=== PATIENT | female | born 1995 | race Hispanic/Latino ===

== ENCOUNTER 2021-06-29 11:05 | Emergency (ER) | payer OTHER ==
[2021-06-29] MEDS ORDERED: NA CHLORIDE 0.9% 1,000 ML ONE (12:26)
[2021-06-29 12:45] LABS: Absolute Lymphocytes (CBC) 2.7 K/uL (0.7-4.9); Basophils % 0.6 % (0-1.3); Hematocrit 38.2 % (36.0-45.0); Lymphocytes % 19.8 % (15.3-44.8); MPV 7.8 fL (7.6-11.3); RBC Red Blood Cell Count 4.51 M/uL (3.86-4.86)
--- NOTE | 2021-06-29 12:54 | RAD REPORT ---
EXAM DESCRIPTION: US - Matter Jennie Tm 1 - 06/29/2021 12:33 pm CLINICAL HISTORY: ABD CRAMPING, Early . COMPARISON: No comparisons FINDINGS: A single gestational sac is seen within the uterus. The shape of the sac is within normal limits for gestational age. Within the sac is a single pole with crown-rump length of 22 mm, co rrelating to estimated gestational age of 8 weeks 6 days. Estimated date of delivery is 02/02/2022. Heart rate is 179 BPM. Small 12 mm subchorionic bleed along the inferior margin of the sac. The placenta is not yet developed / visualized due to early gestational age. The maternal adnexa and ovaries are within normal limits. Normal Doppler blood flow was demonstrated to both ovaries. IMPRESSION: Single live early intrauterine gestation with estimated gestational age of 8 weeks and 6 days, MICHELE 02/02/2022. Small 12 mm subchorionic bleed along the inferior margin the sac.
[2021-06-29 14:55] LABS: BUN Blood Urea Nitrogen 6 mg/dL (7-18); Bicarbonate 21 mmol/L (21-32); Glucose Level 76 mg/dL (74-106); Potassium 3.8 mmol/L (3.5-5.1); Sodium Level 139 mmol/L (136-145)
[2021-06-29 14:57] LABS: HCG, Quantitative 59446 mIU/mL (1-3)
--- NOTE | 2021-06-29 14:59 | ER ---
Nurse's Notes [facility] Name: Chanel Sylvester Age: 25 yrs Sex: Female : 1995 Arrival Date: 06/29/2021 Time: 11:09 Bed 24 Private MD: Diagnosis: Threatened Presentation: 06/29 11:28 Chief complaint: Patient states: she began having vaginal bleeding last night. patient ap3 states she is RH negative and this is her third . one living, another passed soon after . Coronavirus screen: Vaccine status: Patient reports being unvaccinated. Client denies travel out of the [place] in the last 14 days. Ebola Screen: No symptoms or risks identified at this time. Initial Sepsis Screen: Does the patient meet any 2 criteria? No. Patient's initial sepsis screen is negative. Risk Assessment: Do you want to hurt yourself or someone else? Patient reports no desire to harm self or others. Onset of symptoms was June 28, 2021. 11:28 Method Of Arrival: Ambulatory ap3 11:28 Acuity: RAMILA 4 ap3 11:35 Acuity: RAMILA 3 iw Triage Assessment: 11:30 General: Appears in no apparent distress. comfortable, Behavior is calm, cooperative, ap3 appropriate for age. Pain: Denies pain. Neuro: Level of Consciousness is awake, alert, obeys commands, Oriented to person, place, time, situation, Appropriate for age Moves all extremities. Gait is steady, Speech is normal. Cardiovascular: Capillary refill < 3 seconds Patient's skin is warm and dry. Respiratory: Airway is patent Respiratory effort is even, unlabored, Respiratory pattern is regular, symmetrical. GI: No signs and/or symptoms were reported involving the gastrointestinal system. : Reports vaginal bleeding that is with clots. 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 - Social history:: Smoking status: Patient denies any tobacco usage or history of. Patient/guardian denies using alcohol, street drugs. Screenin:31 Abuse screen: Denies threats or abuse. Nutritional screening: No deficits noted. ap3 Tuberculosis screening: No symptoms or risk factors identified. Fall Risk None identified. Assessment: 11:37 Obstetrical Assessment: General assessment: awake and alert, skin warm and dry, aj2 respirations even and unlabored. General: Appears in no apparent distress. comfortable, well groomed, well developed, well nourished. Pain: Complains of pain in abdomen. Pain: Denies pain. Complains of pain in suprapubic area Pain radiates to lumbar area, left low back and right low back Pain currently is 6 out of 10 on a pain scale. Quality of pain is described as crampy, Pain began 1 day ago. Is continuous, Alleviated by nothing. Aggravated by increased activity, repositioning, Also complains of no other associated symptoms. 12:26 Reassessment: Positive HCG. aj2 13:40 Reassessment: Patient appears in no apparent distress at this time. Patient is alert, aj2 oriented x 3, equal unlabored respirations, skin warm/dry/pink. Vital Signs: 11:43 BP 121 / 66; Pulse 73; Resp 18; Temp 98.7; Pulse Ox 100% on R/A; aj2 13:40 BP 110 / 67; Pulse 76; Resp 18; Temp 98.5; Pulse Ox 100% on R/A; aj2 16:59 BP 115 / 67; Pulse 67; Resp 20; Temp 98.5; Pulse Ox 100% on R/A; aj2 ED Course: 11:09 Patient arrived in ED. as 11:30 Triage completed. ap3 11:32 Wai Flanagan is Primary Nurse. aj2 11:32 Patient has correct armband on for positive identification. Placed in gown. Bed in low ap3 position. Call light in reach. Side rails up X2. Door closed. Noise minimized. 11:37 No apparent distress. Resting quietly. aj2 11:37 No provider procedures requiring assistance completed. Patient did not have IV access aj2 during this emergency room visit. 11:43 Awais Croft MD is Attending Physician. renetta 12:18 Basic Metabolic Panel Sent. aj2 12:18 CBC with Automated Diff Sent. aj2 12:18 Urine Culture Sent. aj2 12:18 ABO/RH typing Sent. aj2 12:18 Abo/rh Typing Sent. aj2 12:18 Basic Metabolic Panel Sent. aj2 12:18 CBC with Diff Sent. aj2 12:19 Urine Culture Sent. aj2 12:19 Quantitative Hcg Sent. aj2 12:33 Matter Eval Tm 1 In Process Unspecified. EDMS 13:40 No apparent distress. Resting quietly. aj2 14:58 Daniel Rolon MD is Referral Physician. [facility] Administered Medications: 12:18 Drug: NS 0.9% 1000 ml Route: IV; Rate: 1 bolus; Site: right hand; aj2 16:58 Drug: Rho D Immune Globulin 300 mcg Route: IM; Site: left deltoid; aj2 Outcome: 14:59 Discharge ordered by . [facility] 17:01 Discharged to home ambulatory. aj2 17:01 Condition: stable 17:01 Discharge instructions given to patient, Instructed on discharge instructions, follow up and referral plans. Demonstrated understanding of instructions, follow-up care, medications. 17:01 No charge visit due to . aj2 17:04 Patient left the ED. aj2 Signatures: Dispatcher [employer] EDNC Awais Croft MD MD cha Martinez, Amelia as Williams, Irene, RN RN iw Prokisch, Amanda, RN RN ap3 Jenkins, Angelea aj2
--- NOTE | 2021-06-29 14:59 | EDPHYS ---
Physician Documentation [facility] Name: Chanel Sylvester Age: 25 yrs Sex: Female : 1995 Arrival Date: 06/29/2021 Time: 11:09 Bed 24 Private MD: ANNALISE Physician Awais Croft HPI: 06/29 14:54 This 25 yrs old Female presents to ER via Ambulatory with complaints of renetta Vaginal Bleeding, + Preg <12wks. 14:54 The patient presents to the emergency department with vaginal bleeding, that is light. renetta The estimated gestational age is 9 weeks. course: care: at a clinic. Associated signs and symptoms: The patient has no apparent associated signs or symptoms. The patient has not experienced similar symptoms in the past. 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 - Social history:: Smoking status: Patient denies any tobacco usage or history of. Patient/guardian denies using alcohol, street drugs. ROS: 14:55 Constitutional: Negative for fever, chills, and weight loss, Eyes: Negative for injury, renetta pain, redness, and discharge, ENT: Negative for injury, pain, and discharge, Neck: Negative for injury, pain, and swelling, Cardiovascular: Negative for chest pain, palpitations, and edema, Respiratory: Negative for shortness of breath, cough, wheezing, and pleuritic chest pain, Abdomen/GI: Negative for abdominal pain, nausea, vomiting, diarrhea, and constipation, Back: Negative for injury and pain, MS/Extremity: Negative for injury and deformity, Skin: Negative for injury, rash, and discoloration, Neuro: Negative for headache, weakness, numbness, tingling, and seizure, Psych: Negative for depression, anxiety, suicide ideation, homicidal ideation, and hallucinations, Allergy/Immunology: Negative for hives, rash, and allergies, Endocrine: Negative for neck swelling, polydipsia, polyuria, polyphagia, and marked weight changes, Hematologic/Lymphatic: Negative for swollen nodes, abnormal bleeding, and unusual bruising. 14:55 : Positive for vaginal bleeding. Exam: 14:55 Constitutional: This is a well developed, well nourished patient who is awake, alert, renetta and in no acute distress. Head/Face: Normocephalic, atraumatic. Eyes: Pupils equal round and reactive to light, extra-ocular motions intact. Lids and lashes normal. Conjunctiva and sclera are non-icteric and not injected. Cornea within normal limits. Periorbital areas with no swelling, redness, or edema. ENT: Nares patent. No nasal discharge, no septal abnormalities noted. Tympanic membranes are normal and external auditory canals are clear. Oropharynx with no redness, swelling, or masses, exudates, or evidence of obstruction, uvula midline. Mucous membranes moist. Neck: Trachea midline, no thyromegaly or masses palpated, and no cervical lymphadenopathy. Supple, full range of motion without nuchal rigidity, or vertebral point tenderness. No Meningismus. Chest/axilla: Normal chest wall appearance and motion. Nontender with no deformity. No lesions are appreciated. Cardiovascular: Regular rate and rhythm with a normal S1 and S2. No gallops, murmurs, or rubs. Normal PMI, no JVD. No pulse deficits. Respiratory: Lungs have equal breath sounds bilaterally, clear to auscultation and percussion. No rales, rhonchi or wheezes noted. No increased work of breathing, no retractions or nasal flaring. Abdomen/GI: Soft, non-tender, with normal bowel sounds. No distension or tympany. No guarding or rebound. No evidence of tenderness throughout. Back: No spinal tenderness. No costovertebral tenderness. Full range of motion. Skin: Warm, dry with normal turgor. Normal color with no rashes, no lesions, and no evidence of cellulitis. MS/ Extremity: Pulses equal, no cyanosis. Neurovascular intact. Full, normal range of motion. Neuro: Awake and alert, GCS 15, oriented to person, place, time, and situation. Cranial nerves II-XII grossly intact. Motor strength 5/5 in all extremities. Sensory grossly intact. Cerebellar exam normal. Normal gait. Psych: Awake, alert, with orientation to person, place and time. Behavior, mood, and affect are within normal limits. Vital Signs: 11:43 BP 121 / 66; Pulse 73; Resp 18; Temp 98.7; Pulse Ox 100% on R/A; aj2 13:40 BP 110 / 67; Pulse 76; Resp 18; Temp 98.5; Pulse Ox 100% on R/A; aj2 16:59 BP 115 / 67; Pulse 67; Resp 20; Temp 98.5; Pulse Ox 100% on R/A; aj2 MDM: 11:43 Patient medically screened. [facility] 14:55 Differential diagnosis: threatened Ab. Data reviewed: vital signs, nurses notes, lab [facility] test result(s), radiologic studies, ultrasound. Data interpreted: environmental monitoring specialist: rate is 76 beats/min, rhythm is regular, Pulse oximetry: is not applicable for this patient encounter. on room air is 100 %. Test interpretation: by ED physician or midlevel provider:. Counseling: I had a detailed discussion with the patient and/or guardian regarding: the historical points, exam findings, and any diagnostic results supporting the discharge/admit diagnosis, lab results, radiology results, the need for outpatient follow up, for definitive care, an OB/Gyne specialist. 06/29 11:44 Order name: Urine Culture [facility] 06/29 11:44 Order name: Abo/rh Typing [facility] 06/29 11:44 Order name: Basic Metabolic Panel [facility] 06/29 11:44 Order name: CBC with Diff [facility] 06/29 11:44 Order name: Quantitative Hcg [facility] 06/29 11:44 Order name: Urine Culture [facility] 06/29 11:44 Order name: ABO/RH typing; Complete Time: 14:41 [facility] 06/29 11:44 Order name: Basic Metabolic Panel [facility] 06/29 11:44 Order name: CBC with Automated Diff; Complete Time: 14:41 [facility] 06/29 14:42 Order name: Rhogam [facility] 06/29 14:43 Order name: Rh Typing [facility] 06/29 14:43 Order name: Antibody Screen [facility] 06/29 14:43 Order name: Fetalscreen [facility] 06/29 14:43 Order name: Cord Rh type [facility] 06/29 11:44 Order name: Urine Dipstick-Ancillary (obtain specimen); Complete Time: 15:29 [facility] 06/29 11:44 Order name: IV Saline Lock; Complete Time: 12:18 renetta 06/29 11:44 Order name: Labs collected and sent; Complete Time: 12:18 renetta 06/29 11:44 Order name: NPO; Complete Time: 12:19 [facility] 06/29 11:44 Order name: Urine Test (obtain specimen); Complete Time: 12:19 renetta 06/29 12:33 Order name: Matter Eval Tm 1; Complete Time: 14:41 EDMS 06/29 12:50 Order name: Labs - recollect needed: recollect light green top; Complete Time: 13:15 06/29 15:50 Order name: ABO/RH no charge EDMS Administered Medications: 12:18 Drug: NS 0.9% 1000 ml Route: IV; Rate: 1 bolus; Site: right hand; aj2 16:58 Drug: Rho D Immune Globulin 300 mcg Route: IM; Site: left deltoid; aj2 Disposition Summary: 06/29/21 14:59 Discharge Ordered Location: Home renetta Problem: new renetta Symptoms: have improved renetta Condition: Stable renetta Diagnosis - Threatened renetta Followup: renetta - With: Private Physician - When: 2 - 3 days - Reason: Recheck today's complaints, Continuance of care, Re-evaluation by your physician Followup: renetta - With: Daniel Rolon MD - When: 2 - 3 days - Reason: Recheck today's complaints, Continuance of care, Re-evaluation by your physician Discharge Instructions: - Discharge Summary Sheet renetta - Threatened Miscarriage renetta - First Trimester of renetta - Threatened Miscarriage, [id number] renetta - Vaginal Bleeding During , First Trimester, [id number] renetta Forms: - Medication Reconciliation Form renetta - Thank You Letter renetta - Antibiotic Education renetta - Prescription Opioid Use renetta Signatures: Dispatcher [employer] EDLu Carreno Corey, MD MD cha Prokisch, Amanda, RN RN [email or web address] Wai Flanagan aj2 Corrections: (The following items were deleted from the chart) 12:33 11:45 Transvaginal Ob+US.RAD.BRZ ordered. EDMS EDMS
[2021-06-29 17:43] VITALS: O2SAT 100
[2021-06-29 17:44] VITALS: TEMP 98.5
[2021-06-29 17:45] VITALS: BP 115/67
== END 2021-06-29 17:04 | disposition home or self-care (01) ==
LOC: ER 11:05
DX: O20.0 Threatened abortion (principal); Z3A.09 9 weeks gestation of pregnancy
CPT/HCPCS: 87088; 85025; 87086; 80048; 36415; 86900; 86850; 86901 ×2; 84702; 76801; 96372; J2790; J7030

== ENCOUNTER 2021-07-16 13:30 | Emergency (ER) | payer OTHER ==
[2021-07-16 15:59] LABS: Urine Blood 1+ (Negative); Urine Glucose Trace (Negative); Urine Protein Negative (Negative); Urine Specific Gravity 1.015 (1.005-1.030)
[2021-07-16 16:13] LABS: Absolute Lymphocytes (CBC) 3.3 K/uL (0.7-4.9); Basophils % 0.5 % (0-1.3); Hematocrit 36.6 % (36.0-45.0); MPV 7.1 fL (7.6-11.3); RBC Red Blood Cell Count 4.31 M/uL (3.86-4.86)
[2021-07-16 16:31] LABS: Urine Bacteria <20 /HPF (<20)
[2021-07-16 16:38] LABS: BUN Blood Urea Nitrogen 9 mg/dL (7-18); Bicarbonate 21 mmol/L (21-32); Glucose Level 113 mg/dL (74-106); Potassium 3.5 mmol/L (3.5-5.1); Sodium Level 138 mmol/L (136-145)
[2021-07-16 16:54] LABS: HCG, Quantitative 55497 mIU/mL (1-3)
--- NOTE | 2021-07-16 17:22 | RAD REPORT ---
EXAM DESCRIPTION: US - OB Limited - 07/16/2021 4:48 pm CLINICAL HISTORY: abd cramping, vaginal bleeding Early . COMPARISON: Matter Eval Tm 1 dated 06/29/2021 FINDINGS: A single gestational sac is seen within the uterus. The shape of the sac is within normal limits for gestational age. Within the sac is a single pole with crown-rump length of 5.0 cm, c orrelating to estimated gestational age of 11 weeks 4 days. Estimated date of delivery is 01/31/2022. Heart rate is 171 BPM. Placental mass is posteriorly located. The maternal adnexa and ovaries are within normal limits. Normal Doppler blood flow was demonstrated to both ovaries. IMPRESSION: Single live early intrauterine gestation with estimated gestational age of 11 weeks and 4 days, MICHELE 01/31/2022. No unusual or unexpected finding.
--- NOTE | 2021-07-16 18:15 | ER ---
Nurse's Notes [facility] Name: Chanel Sylvester Age: 25 yrs Sex: Female : 1995 Arrival Date: 07/16/2021 Time: 13:31 Bed 30 Private MD: Diagnosis: Threatened Presentation: 07/16 13:50 Chief complaint: Patient states: Lower abd pain with vaginal bleeding that started last ll1 night. + , about 11 weeks. G3, P2. No fever. Coronavirus screen: Client denies travel out of the [place] in the last 14 days. At this time, the client does not indicate any symptoms associated with coronavirus-19. Ebola Screen: Patient denies travel to an Ebola-affected area in the 21 days before illness onset. Initial Sepsis Screen: Does the patient meet any 2 criteria? HR > 90 bpm. No. Patient's initial sepsis screen is negative. Does the patient have a suspected source of infection? Yes: Acute abdominal pain. Risk Assessment: Do you want to hurt yourself or someone else? Patient reports no desire to harm self or others. Onset of symptoms was July 15, 2021. 13:50 Method Of Arrival: Ambulatory ll1 13:50 Acuity: RAMILA 3 ll1 Historical: - Allergies: 13:52 No Known Allergies; ll1 - PMHx: 13:52 None; ll1 - PSHx: 13:52 None; ll1 - Immunization history:: Client reports having NOT received the Covid vaccine. - Social history:: Smoking status: Patient denies any tobacco usage or history of. - Family history:: not pertinent. - Hospitalizations: : No recent hospitalization is reported. Screenin:08 Abuse screen: Denies threats or abuse. Nutritional screening: No deficits noted. On no kh1 prescribed diet. Tuberculosis screening: No symptoms or risk factors identified. Fall Risk None identified. IV access (20 points). Ambulatory Aid- None/Bed Rest/Nurse Assist (0 pts). Gait- Normal/Bed Rest/Wheelchair (0 pts) Mental Status- Oriented to own ability (0 pts). Assessment: 18:03 Obstetrical Assessment: General assessment: awake and alert, skin warm and dry. kh1 General: Appears in no apparent distress. comfortable, Behavior is calm, cooperative, appropriate for age. Pain: Denies pain. : No deficits noted. Vital Signs: 13:50 BP 143 / 76; Pulse 98; Resp 17; Temp 98.2; Pulse Ox 98% ; Weight 75.3 kg; Height 4 ft. ll1 11 in. (149.86 cm); Pain 5/10; 18:03 BP 117 / 67; Pulse 84; Resp 16; Temp 97.8; Pulse Ox 99% on R/A; kh1 19:25 BP 118 / 76; Pulse 74; Resp 20; Temp 98.3; Pulse Ox 100% ; kh1 13:50 Body Mass Index 33.53 (75.30 kg, 149.86 cm) 1 Vitals: 18:03 Cardiac Rhythm Assessment Regular Sinus rhythm. kh1 [place] Score: 18:03 Eye Response: spontaneous(4). Verbal Response: oriented(5). Motor Response: obeys 1 commands(6). Total: 15. ED Course: 13:31 Patient arrived in ED. as 13:52 Triage completed. 1 13:52 Arm band placed on. [facility] 15:02 Edmundo Quan MD is Attending Physician. rn 15:06 Lindsay Willoughby is Primary Nurse. kh1 16:07 Urine Microscopic Only Sent. kh1 16:07 Basic Metabolic Panel Sent. kh1 16:08 CBC with Diff Sent. kh1 16:08 Quantitative Hcg Sent. kh1 16:17 Urine --Ancillary (enter results) Sent. kh1 16:48 US OB Limited In Process Unspecified. EDND 19:25 Patient has correct armband on for positive identification. Call light in reach. 1 19:25 IV discontinued, intact, bleeding controlled, No redness/swelling at site. Pressure 1 dressing applied. Administered Medications: 19:26 Not Given (pt received rhogam 2 days agoo): RhoGAM (Human) 300 mcg IM once iw Outcome: 18:14 Discharge ordered by . rn 19:25 Discharged to home ambulatory. on license of [facility] 19:25 Condition: stable 19:25 Discharge instructions given to patient. 19:25 Instructed on discharge instructions, follow up and referral plans. Demonstrated on license of [facility] understanding of instructions, follow-up care. 19:49 Patient left the ED. on license of [facility] Signatures: Dispatcher [employer] EDMai Carrillo as Edmundo Quan MD MD rn Lewis, Lynsay, RN RN 1 Lindsay Willoughby kh1 Sarah Dejesus RN iw Corrections: (The following items were deleted from the chart) 19:46 19:45 Condition: stable [place] [id number]
--- NOTE | 2021-07-16 18:15 | EDPHYS ---
Physician Documentation [facility] Name: Chanel Sylvester Age: 25 yrs Sex: Female : 1995 Arrival Date: 07/16/2021 Time: 13:31 Bed 30 Private MD: ED Physician Edmundo Quan HPI: 07/16 15:46 This 25 yrs old Female presents to ER via Ambulatory with complaints of rn Vaginal Bleeding, + Preg <12wks. 15:46 The patient presents to the emergency department with abdominal pain, vaginal bleeding, rn that is light, with no clots. The estimated gestational age is 11 weeks. course: care: private OB physician, Ultrasound: the patient had an ultrasound, Risk/complications: no obvious risks or complications are appreciated. Previous pregnancies: in previous pregnancies patient has had. The patient has experienced a previous episode. The patient has been recently seen by a physician:. G3, P1 at 11 weeks gestation, seen here 2 weeks ago for vaginal bleeding and told everything was okay. Received RhoGam at that time. Patient states bleeding improved but now bleeding again. Denies fever or trauma. Reports light bleeding.. Historical: - Allergies: 13:52 No Known Allergies; ll1 - PMHx: 13:52 None; ll1 - PSHx: 13:52 None; ll1 - Immunization history:: Client reports having NOT received the Covid vaccine. - Social history:: Smoking status: Patient denies any tobacco usage or history of. - Family history:: not pertinent. - Hospitalizations: : No recent hospitalization is reported. ROS: 15:46 Constitutional: Negative for fever, chills, and weight loss, Eyes: Negative for injury, rn pain, redness, and discharge, Cardiovascular: Negative for chest pain, palpitations, and edema, Respiratory: Negative for shortness of breath, cough, wheezing, and pleuritic chest pain, Abdomen/GI: Negative for nausea, vomiting, diarrhea, and constipation, Back: Negative for injury and pain, : Positive for vaginal bleeding MS/Extremity: Negative for injury and deformity, Skin: Negative for injury, rash, and discoloration, Neuro: Negative for headache, weakness, numbness, tingling, and seizure. Exam: 15:46 Constitutional: This is a well developed, well nourished patient who is awake, alert, rn and in no acute distress. Head/Face: Normocephalic, atraumatic. Eyes: Periorbital areas with no swelling, redness, or edema. Cardiovascular: Regular rate and rhythm. No pulse deficits. Respiratory: No increased work of breathing, no retractions or nasal flaring. Abdomen/GI: Soft, non-tender Skin: Warm, dry MS/ Extremity: Pulses equal, no cyanosis. Neuro: Awake and alert, GCS 15 Vital Signs: 13:50 BP 143 / 76; Pulse 98; Resp 17; Temp 98.2; Pulse Ox 98% ; Weight 75.3 kg; Height 4 ft. ll1 11 in. (149.86 cm); Pain 5/10; 18:03 BP 117 / 67; Pulse 84; Resp 16; Temp 97.8; Pulse Ox 99% on R/A; kh1 19:25 BP 118 / 76; Pulse 74; Resp 20; Temp 98.3; Pulse Ox 100% ; kh1 13:50 Body Mass Index 33.53 (75.30 kg, 149.86 cm) ll1 [place] Coma Score: 18:03 Eye Response: spontaneous(4). Verbal Response: oriented(5). Motor Response: obeys kh1 commands(6). Total: 15. MDM: 15:02 Patient medically screened. rn 18:12 Differential diagnosis: threatened Ab. Data reviewed: vital signs, nurses notes, phlebotomist medical lab assistant test result(s), radiologic studies, ultrasound, and as a result, I will discharge patient. Counseling: I had a detailed discussion with the patient and/or guardian regarding: the historical points, exam findings, and any diagnostic results supporting the discharge/admit diagnosis, lab results, radiology results, the need for outpatient follow up, to return to the emergency department if symptoms worsen or persist or if there are any questions or concerns that arise at home. Response to treatment: the patient's symptoms have mildly improved after treatment, and as a result, I will discharge patient. Special discussion: I discussed with the patient/guardian in detail that at this point there is no indication for admission to the hospital. It is understood, however, that if the symptoms persist or worsen the patient needs to return immediately for re-evaluation. Based on the history and exam findings, there is no indication for further emergent testing or inpatient evaluation. I discussed with the patient/guardian the need to see the OB Gyne specialist for further evaluation of the symptoms. ED course: Pt improved, Beta hcg 14821, [place] [address]181, but u/s shows good FHTs and movement. Consulted with Dr. Rolon who recommends repeat rhogam to be safe given bleeding stopped and now returned. . 07/16 15:23 Order name: Basic Metabolic Panel; Complete Time: 17:19 rn 07/16 15:23 Order name: CBC with Diff; Complete Time: 17:19 rn 07/16 15:23 Order name: Quantitative Hcg; Complete Time: 17:19 rn 07/16 15:23 Order name: Urine Microscopic Only; Complete Time: 17:19 rn 07/16 15:59 Order name: Urine Dipstick-Ancillary; Complete Time: 17:19 EDMS 07/16 16:05 Order name: Urine --Ancillary (enter results); Complete Time: 19:13 eb 07/16 15:23 Order name: IV Saline Lock; Complete Time: 16:07 rn 07/16 15:23 Order name: Labs collected and sent; Complete Time: 16:07 rn 07/16 15:23 Order name: Urine Dipstick-Ancillary (obtain specimen); Complete Time: 16:07 rn 07/16 15:23 Order name: US OB Limited; Complete Time: 17:24 rn Administered Medications: 19:26 Not Given (pt received rhogam 2 days agoo): RhoGAM (Human) 300 mcg IM once iw Disposition Summary: 07/16/21 18:14 Discharge Ordered Location: Home rn Problem: new rn Symptoms: have improved rn Condition: Stable rn Diagnosis - Threatened rn Followup: rn - With: Private Physician - When: As needed - Reason: Recheck today's complaints, Re-evaluation by your physician Discharge Instructions: - Discharge Summary Sheet rn - Threatened Miscarriage rn - Vaginal Bleeding During , First Trimester rn Forms: - Medication Reconciliation Form rn - Thank You Letter rn - Antibiotic photo journalist - Prescription Opioid Use rn - Work release form kh1 - Family Work Release kh1 Signatures: Dispatcher [employer] Edmundo Warner MD MD rn Lewis, Lynsay, RN RN [email or web address] Sarah Dejesus RN iw
[2021-07-16 18:53] LABS: Urine Specific Gravity/Preg 1.015 (1.005-1.030)
[2021-07-16 19:57] VITALS: BP 118/76; TEMP 98.3; O2SAT 100
== END 2021-07-16 19:49 | disposition home or self-care (01) ==
LOC: ER 13:30
DX: O20.0 Threatened abortion (principal); Z3A.11 11 weeks gestation of pregnancy
CPT/HCPCS: 36415; 76815; 80048; 81003; 81015; 81025; 84702; 85025; 99283